=== PATIENT | male | born 1950 | race Caucasian/White ===

== ENCOUNTER 2019-08-11 05:33 | Emergency (ER) | payer MEDICARE, OTHER ==
[~2019-08-11] VITALS: Ht 165.1 cm; Wt 63.5 kg
--- NOTE | 2019-08-11 05:54 | NUR ---
PATIENT CAME TO ER BED 9 C/O ALTERED MENTAL STATUS. PER EMS REPORT, PATIENT WAS AT HOME AND UNCOOPERATIVE AND WANTS TO GO BACK TO SLEEP, BLOOD SUGAR AT 32 AND WAS GIVEN D10W ON THE FIELD. AAOX1. NO SOB. BREATHING EVENLY AND UNLABORED ON ROOM AIR. CONNECTED TO SOFTWARE QUALITY MANAGER.
[2019-08-11 06:02] LABS: BASOPHILS % (AUTO) 0.5 % (0.0-2.0); EOSINOPHILS % (AUTO) 2.1 % (0.0-6.0); HEMATOCRIT 46 % (39-51); HEMOGLOBIN 14.6 g/dL (13.5-17.5); LYMPHOCYTES # (AUTO) 0.8 /CMM (0.8-4.8); LYMPHOCYTES % (AUTO) 11.9 % (20.0-44.0); MEAN CORPUSCULAR HGB CONC 32 g/dl (31.0-36.0); MEAN CORPUSCULAR VOLUME 88 fL (80-96); MONOCYTES # (AUTO) 0.5 /CMM (0.1-1.30); MONOCYTES % (AUTO) 7.2 % (2.0-12.0); NEUTROPHILS # (AUTO) 5.3 /CMM (1.8-8.9); NEUTROPHILS % (AUTO) 78.3 % (43.0-81.0); PLATELET COUNT (AUTO) 175 /CMM (150-450); RED BLOOD CELL COUNT(AUTO) 5.17 MIL/uL (4.5-6.0); WHITE BLOOD COUNT (AUTO) 6.7 K/uL (4.3-11.0)
[2019-08-11 06:10] LABS: CALCIUM, SERUM 9.5 mg/dL (8.5-10.1); CARBON DIOXIDE 29 mmol/L (21-32); CHLORIDE 99 mmol/L (98-107); GLUCOSE 166 mg/dL (74-106); POTASSIUM 4.5 mmol/L (3.5-5.1); SODIUM SERUM 137 mmol/L (136-145); UREA NITROGEN, BLOOD 17 mg/dL (7-18)
[2019-08-11 06:16] LABS: ALANINE AMINOTRANSFERASE 100 U/L (12-78); ALBUMIN 3.7 g/dL (3.4-5.0); ALKALINE PHOSPHATASE 77 U/L (46-116); ASPARTATE AMINOTRANSFERASE 42 U/L (15-37); BILIRUBIN,DIRECT 0.1 mg/dL (0.0-0.2); BILIRUBIN,TOTAL 0.2 mg/dL (0.2-1.0); LIPASE 32 U/L (73-393); TOTAL PROTEIN, SERUM 7.7 g/dL (6.4-8.2)
--- NOTE | 2019-08-11 06:28 | NUR ---
SPOKE WITH SON, VALDEZ. SON STATES TO CALL HIM WHEN PATIENT IS AVAILABLE FOR DISCHARGE.
--- NOTE | 2019-08-11 07:06 | NUR ---
CALLED SON, OF PATIENT WILL PICK PATIENT UP IN 10-15 MINUTES.
--- NOTE | 2019-08-11 08:02 | NUR ---
REPORT GIVEN TO CARMELLA RANGEL FOR [facility].
--- NOTE | 2019-08-11 08:20 | NUR ---
patient a/ox3, breathing even and unlabored, no sob noted, needs attended, ambulatory with steady gait. IV removed. Catheter intact and site benign. Pressure and 4x4 applied to site. No bleeding noted.Patient discharged to home in stable condition. Written and verbal after care instructions given. Patient verbalizes understanding of instruction.
[2019-08-11 08:22] VITALS: BP 149/64
== END 2019-08-11 08:22 | disposition home or self-care (01) ==
LOC: ER 05:36
DX: E11.649 Type 2 diabetes mellitus with hypoglycemia without coma (principal); R94.31 Abnormal electrocardiogram [ECG] [EKG]
CPT/HCPCS: 36415; 71045-TC; 80048-TC; 80076-TC; 82962-TC; 83690-TC; 84484-TC; 85025-TC

== ENCOUNTER 2022-03-26 20:18 | Inpatient (IN) | payer MEDICARE, MEDICAID ==
[~2022-03-26] VITALS: Ht 170.2 cm; Wt 59.9 kg
--- NOTE | 2022-03-26 20:25 | NUR ---
BIBRA 39 FROM HOME C/O WEAKNESS. BS AT HOME WAS 30. 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 BS AT 310. PLACED COMFORTABLY IN BED. ATTACHED TO MONITOR. VITALS CHECKED. PT CAME WITH IV CANNULA G18 ON LEFT FA. LINE IS FLUSHED AND PATENT TO USE
--- NOTE | 2022-03-26 20:54 | NUR ---
Blood Sugar 179
[2022-03-26] MEDS ORDERED: IV NS 0.9% 1,000 ML BAG IV ONE (21:00)
--- NOTE | 2022-03-26 21:45 | NUR ---
MEDICAL REIMBURSEMENT SPECIALIST AT PT'S BEDSIDE
[2022-03-26 21:53] LABS: BASOPHILS % (AUTO) 0.3 % (0.0-2.0); EOSINOPHILS % (AUTO) 0.4 % (0.0-6.0); HEMATOCRIT 37 % (39-51); HEMOGLOBIN 11.8 g/dL (13.5-17.5); LYMPHOCYTES # (AUTO) 0.9 K/uL (0.8-4.8); LYMPHOCYTES % (AUTO) 11.7 % (20.0-44.0); MEAN CORPUSCULAR HGB CONC 32 g/dl (31.0-36.0); MEAN CORPUSCULAR VOLUME 85 fL (80-96); MONOCYTES # (AUTO) 0.5 K/uL (0.1-1.30); MONOCYTES % (AUTO) 6.3 % (2.0-12.0); NEUTROPHILS # (AUTO) 6.2 K/uL (1.8-8.9); NEUTROPHILS % (AUTO) 81.3 % (43.0-81.0); PLATELET COUNT (AUTO) 132 K/uL (150-450); RED BLOOD CELL COUNT(AUTO) 4.37 MIL/uL (4.5-6.0); WHITE BLOOD COUNT (AUTO) 7.6 K/uL (4.3-11.0)
[2022-03-26 22:12] LABS: CALCIUM, SERUM 8.4 mg/dL (8.5-10.1); CARBON DIOXIDE 23 mmol/L (21-32); CHLORIDE 100 mmol/L (98-107); CREATININE 1.7 mg/dL (0.6-1.3); GLUCOSE 180 mg/dL (74-106); POTASSIUM 4.9 mmol/L (3.5-5.1); SODIUM SERUM 132 mmol/L (136-145); UREA NITROGEN, BLOOD 50 mg/dL (7-18)
[2022-03-26 22:18] LABS: ALANINE AMINOTRANSFERASE 24 U/L (12-78); ALKALINE PHOSPHATASE 125 U/L (46-116); ASPARTATE AMINOTRANSFERASE 27 U/L (15-37); BILIRUBIN,DIRECT 0.1 mg/dL (0.0-0.2); BILIRUBIN,TOTAL 0.4 mg/dL (0.2-1.0); TOTAL PROTEIN, SERUM 7.5 g/dL (6.4-8.2)
--- NOTE | 2022-03-26 22:27 | NUR ---
NEW BLOOD SUGAR LEVEL 195
--- NOTE | 2022-03-26 22:56 | NUR ---
[employer] POLICY CANCELLATION CLERK AT PT'S BEDSIDE
[2022-03-26] MEDS ORDERED: ONDANSETRON HCL/PF 4 MG/2 ML VIAL IVP PRN (23:30)
[2022-03-26] MEDS ORDERED: IV NS 0.9% 1,000 ML IV PRN (23:30)
[2022-03-26] MEDS ORDERED: ACETAMINOPHEN 325 MG TABLET PO PRN (23:30)
[2022-03-26] MEDS ORDERED: DEXTROSE 50%-WATER 50 ML DISP.SYRIN IV PRN (23:30)
--- NOTE | 2022-03-26 23:42 | NUR ---
COVID SWAB DONE AND SENT TO LAB
--- NOTE | 2022-03-27 00:50 | NUR ---
PT PASSED STOOL. PERINEAL CARE DONE.
--- NOTE | 2022-03-27 01:00 | NUR ---
PT IS POSITIVE OF COVID. FAMILY MADE AWARE. PATIENT IS PLACED ON ISOLATION PRECAUTION
--- NOTE | 2022-03-27 01:11 | NUR ---
KATT REA AT BEDSIDE
[2022-03-27 02:54] LABS: LIPASE 43 U/L (73-393)
--- NOTE | 2022-03-27 04:42 | NUR ---
SYSTEMS SUPPORT SPECIALIST AT PT'S BEDSIDE
[2022-03-27 05:12] LABS: CALCIUM, SERUM 7.8 mg/dL (8.5-10.1); CARBON DIOXIDE 22 mmol/L (21-32); CHLORIDE 104 mmol/L (98-107); CREATININE 1.5 mg/dL (0.6-1.3); GLUCOSE 186 mg/dL (74-106); MAGNESIUM 2.4 mg/dL (1.8-2.4); PHOSPHORUS 4.2 mg/dL (2.5-4.9); POTASSIUM 4.9 mmol/L (3.5-5.1); SODIUM SERUM 134 mmol/L (136-145); UREA NITROGEN, BLOOD 47 mg/dL (7-18)
[2022-03-27 05:14] LABS: CHOLESTEROL 97 mg/dL (<200); HDL CHOLESTEROL 49 mg/dL (40-60); LDL 40 mg/dL (0-99); TRIGLYCERIDES 109 mg/dL (30-150)
[2022-03-27] MEDS: BLOOD SUGAR DIAGNOSTIC 1 EACH STRIP IN SCH ×4 (07:30→22:36)
[2022-03-27] MEDS ORDERED: AMYLASE/LIPASE/PROTEASE 1 CAP CAPSULE.DR PO SCH (08:00)
--- NOTE | 2022-03-27 08:15 | NUR ---
ACCUCHECK 154
[2022-03-27 08:21] LABS: BASOPHILS % (AUTO) 0.2 % (0.0-2.0); EOSINOPHILS % (AUTO) 0.4 % (0.0-6.0); HEMATOCRIT 33 % (39-51); HEMOGLOBIN 10.5 g/dL (13.5-17.5); LYMPHOCYTES % (AUTO) 21.2 % (20.0-44.0); MEAN CORPUSCULAR HGB CONC 32 g/dl (31.0-36.0); MEAN CORPUSCULAR VOLUME 85 fL (80-96); MONOCYTES # (AUTO) 0.6 K/uL (0.1-1.30); MONOCYTES % (AUTO) 13.1 % (2.0-12.0); NEUTROPHILS % (AUTO) 65.1 % (43.0-81.0); PLATELET COUNT (AUTO) 123 K/uL (150-450); WHITE BLOOD COUNT (AUTO) 4.7 K/uL (4.3-11.0)
[2022-03-27] MEDS ORDERED: LISI-768 PO (08:41)
[2022-03-27] MEDS ORDERED: ROSU40TA23 PO (08:41)
[2022-03-27] MEDS ORDERED: ASPI-1420 PO (08:41)
[2022-03-27] MEDS ORDERED: APIX2.5T PO (08:41)
[2022-03-27] MEDS ORDERED: METF-881 PO (08:41)
[2022-03-27] MEDS ORDERED: CARV12.52 PO (08:41)
[2022-03-27] MEDS ORDERED: AMLO-212 PO (08:41)
[2022-03-27] MEDS ORDERED: INSU100I14 SQ (08:45)
[2022-03-27] MEDS ORDERED: GABA-532 PO (08:45)
[2022-03-27] MEDS ORDERED: QUET25TA PO (08:45)
[2022-03-27] MEDS ORDERED: EMPA25TA PO (08:45)
[2022-03-27] MEDS ORDERED: INSU100I24 SQ (08:45)
[2022-03-27] MEDS ORDERED: MAGN400T26 PO (08:45)
[2022-03-27] MEDS ORDERED: AMYL1CAP58 PO (08:45)
--- NOTE | 2022-03-27 11:03 | NUR ---
ROOM 105 AVAILABLE FOR THE PATIENT
--- NOTE | 2022-03-27 11:09 | NUR ---
PT REPORT GIVEN TO JUAN CARLOS CONSTANTINO
--- NOTE | 2022-03-27 11:49 | NUR ---
PT TRANSFERRED TO [facility] VIA [facility] [place] [facility]. WARM HANDOFF GIVEN TO JUAN CARLOS CONSTANTINO.
[2022-03-27 12:00] VITALS: BP 140/66
[2022-03-27] MEDS: LIPASE/PROTEASE/AMYLASE 1 EACH CAPSULE.DR PO SCH ×2 (13:29→18:18)
[2022-03-27] MEDS: CARVEDILOL 12.5 MG TABLET PO SCH ×2 (13:30→18:18)
[2022-03-27] MEDS: ASPIRIN 81 MG TAB.CHEW PO SCH (13:30)
[2022-03-27] MEDS: LISINOPRIL (5MG) 5 MG TABLET PO SCH (13:30)
[2022-03-27] MEDS: AMLODIPINE BESYLATE 5 MG TABLET PO SCH (13:31)
[2022-03-27] MEDS: APIXABAN 2.5 MG TABLET PO SCH ×2 (13:32→18:18)
[2022-03-27 16:00] VITALS: BP 145/66
--- NOTE | 2022-03-27 19:25 | NUR ---
RN NOTE PT BS 261. BUT NOTED WITH POOR APPETITE. WILL NOTIFY .
[2022-03-27 20:00] VITALS: BP 139/67
[2022-03-27] MEDS ORDERED: ATORVASTATIN 10 MG TABLET PO SCH (22:00)
[2022-03-27] MEDS: INSULIN REGULAR, HUMAN 100 UNIT/ML 3 ML VIAL SQ PRN (22:39)
--- NOTE | 2022-03-27 22:45 | NUR ---
RN NOTES: PT'S BLOOD SUGAR 237. 4 UNITS OF REGULAR INSULIN GIVEN. NO S/S OF HYPER/HYPOGLYCEMIA. WILL CONTINUE TO MONITOR
[2022-03-28] VITALS: BP 129/56
--- NOTE | 2022-03-28 00:22 | NUR ---
RN NOTES: PT C/O UNABLE TO SLEEP, FEELING DEPRESSED. NOTIFIED DR. MARCELINO. ORDER-SEROQUEL 25 MG TAB PO ONCE. ORDER NOTED AND CARRIED OUT.
[2022-03-28] MEDS ORDERED: QUETIAPINE FUMARATE 25 MG TABLET PO SCH ×2 (00:30→22:00)
[2022-03-28 04:00] VITALS: BP 158/80
--- NOTE | 2022-03-28 06:29 | NUR ---
RN CLOSING NOTES: PT IN BED, ALERT, AWAKE/ORIENTED X3 AND VERBALLY RESPONSIVE. ON ROOM AIR AND PT TOLERATED WELL. O2 SAT 97%. IV ACCESS ON RFA#20G INTACT AND PATENT. NO S/S OF INFILTRATIONS. RUNNING NS AT 75CC/HR. NO C/O PAIN OR DISCOMFORT. NO ACUTE DISTRESS. ALL DUE MEDS GIVEN ORDERED. ALL SAFETY MEASURES IN PLACE. SIDE RAILS UP X2, BED IN LOWEST POSITION AND LOCKED. PLACE CALL LIGHT WITH IN REACH. WILL ENDORSE TO MORNING SHIFT NURSE.
--- NOTE | 2022-03-28 07:00 | NUR ---
RN NOTES RECEIVED PT ON BED, A/Ox3, ON RA, NO SOB NOTED, ON TELE SR HR IN 60'S , NS AT 75CC/HR RUNNING , IV SITE CDI, SR SR UP x3, CALL LIGHT WITHIN EASY REACH BED LOCKED AND IN LOWEST POSITION, CONTINUE TO MONITOR .
--- NOTE | 2022-03-28 07:24 | NUR ---
RN NOTE T.O OBTAINED FROM PMD TO RESUME CASI @.
[2022-03-28 08:00] VITALS: BP 169/67
[2022-03-28] MEDS: INSULIN REGULAR, HUMAN 100 UNIT/ML 3 ML VIAL SQ PRN ×2 (08:34→11:46)
[2022-03-28] MEDS: LIPASE/PROTEASE/AMYLASE 1 EACH CAPSULE.DR PO SCH ×2 (08:34→12:00)
[2022-03-28] MEDS: BLOOD SUGAR DIAGNOSTIC 1 EACH STRIP IN SCH ×2 (08:34→11:46)
[2022-03-28] MEDS: ASPIRIN 81 MG TAB.CHEW PO SCH (08:35)
[2022-03-28] MEDS: AMLODIPINE BESYLATE 5 MG TABLET PO SCH (08:36)
[2022-03-28] MEDS: LISINOPRIL (5MG) 5 MG TABLET PO SCH (08:36)
[2022-03-28] MEDS: CARVEDILOL 12.5 MG TABLET PO SCH (08:37)
[2022-03-28] MEDS: APIXABAN 2.5 MG TABLET PO SCH (08:38)
[2022-03-28 12:00] VITALS: BP 122/62
--- NOTE | 2022-03-28 16:17 | NUR ---
RN NOTES DISCHARGE INSTRUCTION GIVE TO PT AND HIS , VERBALIZE UNDERSTANDING , IV SITE D/DEVAN, PT LEFT THE FLOOR TO MAIN ENTRANCE , ACCOMPANIED BY STAFF MEMBER AND HIS VIA WHEELCHAIR IN STABLE CONDITION.
== END 2022-03-28 16:14 | disposition home health service (06) | DRG 917 ==
LOC: ER 20:21 → TRANSITION 03-27 00:47 → TELE1 03-27 11:34
PROVIDERS: ADMIT Nurse Practitioner Acute Care
DX: T38.3X1A Poisoning by insulin and oral hypoglycemic [antidiabetic] drugs, accidental (unintentional), initial encounter (principal); G93.41 Metabolic encephalopathy; U07.1 COVID-19; N17.0 Acute kidney failure with tubular necrosis; E44.1 Mild protein-calorie malnutrition; E87.1 Hypo-osmolality and hyponatremia; D68.59 Other primary thrombophilia; E11.649 Type 2 diabetes mellitus with hypoglycemia without coma; E86.0 Dehydration; E11.65 Type 2 diabetes mellitus with hyperglycemia; Z79.4 Long term (current) use of insulin; Z96.641 Presence of right artificial hip joint; Y92.009 Unspecified place in unspecified non-institutional (private) residence as the place of occurrence of the external cause; E88.09 Other disorders of plasma-protein metabolism, not elsewhere classified; D64.9 Anemia, unspecified; Z74.09 Other reduced mobility; E78.5 Hyperlipidemia, unspecified; I10 Essential (primary) hypertension; J98.8 Other specified respiratory disorders
CPT/HCPCS: 36415; 71045-TC; 76770-TC; 80048-TC; 80061-TC; 80076-TC; 82962-TC; 83690-TC; 83735-TC; 84100-TC; 85025-TC; 85378-TC; 85730-TC; 86140-TC; 87081-TC; 97112-TC; 97116-TC; 97530-TC; A6403; C9803; G0378; J1815; J2405; J7030